=== PATIENT | male | born 1995 | race Caucasian/White ===

== ENCOUNTER 2017-02-01 21:00 | Inpatient (IN) | payer OTHER ==
[~2017-02-01] VITALS: Ht 167.6 cm; Wt 66.9 kg
[2017-02-01] MEDS ORDERED: NS 1,000 ML IV ONE (21:15)
[2017-02-01] MEDS ORDERED: ZZZQ25CA PO (21:18)
[2017-02-01 21:37] LABS: BASO % 0.4 % (0.0-1.0); EOS # 0.1 K/mm3 (0.0-0.50); LARGE UNSTAINED CELL # 0.2 K/mm3 (0.0-0.4); LARGE UNSTAINED CELL % 2.3 % (0.0-4.0); LYMPH # 1.8 K/mm3 (1.5-6.5); LYMPH % 25.1 % (24.0-44.0); MEAN CORPUSCULAR HEMOGLOBIN 31.1 pg (27.0-33.0); MEAN CORPUSCULAR HGB CONC 34.5 g/dl (32.0-36.5); MEAN CORPUSCULAR VOLUME 90.1 fl (80.0-96.0); MONO # 0.4 K/mm3 (0.0-0.8); MONO % 4.8 % (0.0-5.0); NEUTROPHILS # 4.8 K/mm3 (1.8-7.7); NEUTROPHILS % 66.4 % (36.0-66.0); PLATELET COUNT, AUTOMATED 253 k/mm3 (150-450); WHITE BLOOD COUNT 7.2 K/mm3 (4.0-10.0)
[2017-02-01] MEDS ORDERED: CHARCOAL ACTIVATED LIQUID 25 GM/120 ML BTL As Ordered ONE (21:46)
[2017-02-01 21:56] LABS: METHADONE URINE NEGATIVE (NEGATIVE)
[2017-02-01 21:56] LABS: ALBUMIN 4.5 GM/DL (3.2-5.2); ALKALINE PHOSPHATASE 58 U/L (45-117); ALT/SGPT 13 U/L (12-78); ANION GAP 12 MEQ/L (8-16); AST/SGOT 13 U/L (15-37); BILIRUBIN,DIRECT 0.1 MG/DL (0.0-0.2); BILIRUBIN,TOTAL 0.5 MG/DL (0.2-1.0); BLOOD UREA NITROGEN 14 MG/DL (7-18); CALCIUM LEVEL 8.6 MG/DL (8.5-10.1); CARBON DIOXIDE LEVEL 25 MEQ/L (21-32); CHLORIDE LEVEL 108 MEQ/L (98-107); CREATININE FOR GFR 1.12 MG/DL (0.70-1.30); GLOMERULAR FILTRATION RATE > 60.0 (>60); GLUCOSE, FASTING 106 MG/DL (70-105); POTASSIUM SERUM 3.8 MEQ/L (3.5-5.1); SODIUM LEVEL 145 MEQ/L (136-145); TOTAL PROTEIN 7.5 GM/DL (6.4-8.2)
[2017-02-01] MEDS ORDERED: CHARCOAL ACTIVATED LIQUID 25 GM/120 ML BTL PO ONE (22:00)
[2017-02-02] MEDS ORDERED: NS 1,000 ML IV ONE (02:00)
--- NOTE | 2017-02-02 09:59 | ECGEPIP ---
Stationary ECG Study 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
[2017-02-02 16:15] VITALS: BP 136/84
[2017-02-02] MEDS ORDERED: MAALOX 30 ML SUSP *UDC PO PRN (17:30)
[2017-02-02] MEDS ORDERED: MOM 30ML SUSPENSION UDC PO PRN (17:30)
[2017-02-02] MEDS ORDERED: ACETAMINOPHEN TAB 650MG DOSE (2X325MG) PO PRN (17:30)
[2017-02-03 06:00] VITALS: BP 114/75
--- NOTE | 2017-02-03 11:17 | HPEPDOC ---
Medical History and Physical Date of Admission Feb 02, 2017 at 14:39 History and Physical PCP: [facility] ATTENDING: Dr. Caesar Mathew HPI: 21yoM admitted to [facility] for other specified depressive disorder, being medically examined today. No acute medical complaints today. Multiple superficial self-inflicted lacerations are noted left forearm. Patient states these are from a couple of days ago. He also has some healing cuts on his left foot. Denies any fevers, chills, weakness, fatigue, JONES, CP, SOB, cough, palpitations, abdominal pain, N/V/D or changes in bowel or bladder habits. PMHx: ADHD Depression History of SI Self-mutilation Insomnia PSHX: Denies SOCHX: Resides in: [facility] dormitory, from [facility] Marital Status: Single Kids: None Employment: Full-time student Tobacco use: Denies ETOH: Weekends 6 drinks Illicit Drugs: Denies IV Drug Use: Denies Tattoos done unprofessionally: Denies FAMHX: Mother: Alive, depression Father: Alive, well Siblings: 2 half sisters, one half brother Alive, depression Children: None Unexpected deaths due to medical reasons: None. ROS: As noted in HPI, otherwise 11pt ROS of systems reviewed and unremarkable. PE: GEN: 21yoM, appears stated age. Well-nourished, well developed. No acute distress. Alert and oriented x 3. Pleasant, interactive. HEENT: Normocephalic, atraumatic. Pupils are equal, round, and reactive to light. Extraocular movements are intact. No nystagmus appreciated. Sclera are nonicteric. Conjunctiva without injection. Nose midline. Nasal turbinates without bogginess. EACs both patent BL. TMs both visualized and cash with good cone of light, no bulging or erythema. No facial asymmetry. Moist mucous membranes. Dentition fair. Pharynx pink and moist, no cobblestoning. Neck supple , trachea midline. No lymphadenopathy or thyromegaly appreciated. CHEST: Regular rate and rhythm, +S1, +S2 LUNGS: Clear to auscultation bilaterally. No wheezes, rales, or rhonchi. Breathing appears symmetric and easy. Patient is speaking in full sentences. No accessory muscle use. ABD: Round, soft, non-tender, non-distended. +Bowel sounds throughout. No rebound or guarding. No costovertebral angle tenderness. EXT: Pulses 2+ bilaterally dorsalis pedis and radial. No lower extremity edema appreciated. SKIN: [place], dry, warm. Capillary refill <2sec. No rashes. Healing superficial lacerations left forearm and left foot. No drainage, no erythema. NEURO: Alert and oriented x 3. Cranial nerves III-XII are intact. No focal deficits appreciated. EK02/01/17 SINUS TACHYCARDIA ABNORMAL RHYTHM ECG NO PRIOR FOR COMPARISON A&P: 21yoM admitted to [facility] for other specified depressive disorder 1. Psych. Plan per Psychiatry. EKG on file. 2. Superficial lacerations. Healing well. Dry dressing if needed. Monitor. 3. Follow up withPCP on discharge. 4. Safety aid Warner present throughout exam Vital Signs Vital Signs Label Value Date Time Patient Temperature 98.8 degrees F 02/03/17 0600 Pulse 73 02/03/17 0600 Respiratory Rate 16 bpm 02/03/17 0600 Blood Pressure Assessment 114/75 (88) 02/03/17 0600 Bedside Pulse Oximetry 98 % 02/02/17 1559 Item Value Date Time Oxygen Delivery Method Room Air 02/02/17 1559 Laboratory Data Labs 24H Item Value Date Time White Blood Count 7.2 K/mm3 02/01/172109 Red Blood Count 5.38 M/mm3 02/01/172109 Hemoglobin 16.7 g/dl 02/01/172109 Hematocrit 48.5 % 02/01/172109 Mean Corpuscular Volume 90.1 fl 02/01/172109 Mean Corpuscular Hemoglobin 31.1 pg 02/01/172109 Mean Corpuscular Hemoglobin Concent 34.5 g/dl 02/01/172109 Red Cell Distribution Width 12.0 % 02/01/172109 Platelet Count 253 k/mm3 02/01/172109 Sodium Level 145 MEQ/L 02/01/172109 Potassium Level 3.8 MEQ/L 02/01/172109 Chloride Level 108 MEQ/L H 02/01/172109 Carbon Dioxide Level 25 MEQ/L 02/01/172109 Anion Gap 12 MEQ/L 02/01/172109 Blood Urea Nitrogen 14 MG/DL 02/01/172109 Creatinine 1.12 MG/DL 02/01/172109 Glomerular Filtration Rate > 60.0 02/01/172109 Fasting Glucose 106 MG/DL H 02/01/172109 Calcium Level 8.6 MG/DL 02/01/172109 Total Bilirubin 0.5 MG/DL 02/01/172109 Direct Bilirubin 0.1 MG/DL 02/01/172109 Aspartate Amino Transf (AST/SGOT) 13 U/L L 02/01/172109 Alanine Aminotransferase (ALT/SGPT) 13 U/L 02/01/172109 Alkaline Phosphatase 58 U/L 02/01/172109 Total Creatine Kinase 124 U/L 02/01/172109 Total Protein 7.5 GM/DL 02/01/172109 Albumin 4.5 GM/DL 02/01/172109 Albumin/Globulin Ratio 1.50 02/01/172109 Thyroid Stimulating Hormone (TSH) 0.775 uIU/ML 02/01/172109 Salicylates Level < 1.7 MG/DL L 02/01/172109 Urine Opiates Screen NEGATIVE 02/01/172032 Urine Methadone Screen NEGATIVE 02/01/172032 Acetaminophen Level < 2.0 UG/ML L 02/01/172109 Acetaminophen Level < 2.0 UG/ML L 02/02/177 Urine Barbiturates Screen NEGATIVE 02/01/172032 Urine Phencyclidine Screen NEGATIVE 02/01/172032 Urine Amphetamines Screen NEGATIVE 02/01/172032 Urine Benzodiazepines Screen NEGATIVE 02/01/172032 Urine Cocaine Metabolite Screen NEGATIVE 02/01/172032 Urine Cannabinoids Screen NEGATIVE 02/01/172032 Ethyl Alcohol Level 0.170 % H 02/01/172109 Home Medications Scheduled PRN (Zzzquil) 25 Mg Cap 25 MG PO QHS PRN PRN SLEEP Allergies Coded Allergies: No Known Drug Allergy (Verified Allergy, Unknown, 02/01/17) Myriam Verdugo Feb 03, 2017 11:17
[2017-02-03 12:32] VITALS: BP 126/80
[2017-02-03 18:00] VITALS: BP 139/80
--- NOTE | 2017-02-03 20:33 | HPEPDOC ---
[facility] History & Physical History and Physical DATE OF ADMISSION: Feb 02, 2017 at 14:39 CHIEF COMPLAINT: "I attempted suicide with alcohol and pills." HISTORY OF THE PRESENT ILLNESS: Patient is a 21-year-old male who states this is his first inpatient hospitalization, indicates 2 nights ago he was "drinking with friends and got dunk and one of my friends didn't approve of my drinking which upset me so I went into my room and I hope someone would notice that I took pills to overdose. Patient states security was called and had to break down the bathroom door in order to facilitate patient's transport to the hospital for evaluation. Patient informs movie writer he overdosed on approximately 24 tabs of Benadryl (Zzzquil). With regard to the episode patient states, "I wanted to be a threat for them to know I was in pain. I was emotional, afraid of being abandoned." Patient adds, "my girlfriend recently left me in some of the people in my suite have been too busy and not talking to me." Patient indicates symptoms of depression began in 2015 when he started attending college at [employer], notes he has made friends at school but stresses he has "problems with abandonment," and has been under stress stemming from academic studies. Patient rates current anxiety level is 5/10, depression 3/10, denies current suicidal or homicidal ideation, denies audiovisual hallucinations, and denies urge to engage in self-injurious behavior. Patient has multiple superficial lacerations to left forearm, informs movie writer he has a history of cutting arm in high school "multiple times." Patient describes his history of self-injurious behavior as "it's a form of masochism and I enjoy it." Patient reports history of suicide attempt 1 in high school [address] of overdose, states he never told anyone and never received treatment. This is contrary to ER report which indicates patient stated he began experiencing symptoms of depression in 9th grade, also apparently informed ER staff that he has a history of 2 prior suicide attempts via OD, also told ER staff that he attempted to hang himself at age 19 but the noose broke and the attempt went unreported. The aforementioned suicide attempts conflict with information provided to movie writer today; patient informs movie writer he has history of one prior suicide attempt. Patient endorses history of discomfort in social settings, endorses history of panic symptoms, denies challenges with impulse control, compulsive behaviors, and indicates his mood is level. Patient denies history of aggression, and denies having access to weapons. Patient denies history of hypomania or leo symptoms, indicates his appetite is "decent," denies recent changes to weight, denies history of eating disorder and use of compensatory behaviors. Patient indicates he experiences challenges with sleep related to studying for school. Patient indicates he uses Mountain Dew to stay awake to study then uses Zzzquil 1-2 times per week after studying 2-induced sedation. Patient denies challenges with sleep when he is not under stress from school and has enough time to sleep , endorses periodic nightmares. PAST PSYCHIATRIC HISTORY: Prior Psychiatric Disorder: Patient states he was treated for ADHD when younger and took medications which were ineffective but caused weight loss. Patient denies history of other psychiatric challenges, indicates he attempted suicide in high school for which she received no treatment Outpatient Treatment: Outpatient therapy in 2007 stating, "not sure why went to therapy." Suicidal/Self injurious: Reports history of being beginning in high school, last cutting episode was just prior to current hospitalization Psychotropic Medication History: ADHD medications, unknown. ALLERGIES: Please see below. HOME MEDICATIONS: Per record as follows: See below PAST MEDICAL/SURGICAL HISTORY: Patient denies chronic medical issues, denies history of seizure and had injury. FAMILY PSYCHIATRIC HISTORY: Sister - suicide attempt, depression Biological mother - depression, suicidal ideation Paternal uncle - alcohol abuse, drug abuse, incarceration SOCIAL HISTORY: Patient states he was born in the [facility] area and then "jumped around" due to parents and then reestablishing new relationships. Patient indicates he lived with his grandmother in the [facility] for one year while his father was deployed, then resided with his father when his father returned from deployment. Patient's mother lives in the [facility], patient declined to discuss the nature of his relationship with his mother, noted he sees her on holidays. Patient denies history of abuse, trauma, or witnessing domestic violence in the home while growing up. Patient indicates he has 3/2 siblings and 2 stepsiblings. Patient reports his girlfriend recently broke up with him and declines to elaborate, states he is single, never , no children. Patient notes he has friends in the [place] area, indicates he gets along well with his suite mates at college, indicates he has limited support system and does not feel close to his family. 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 SUBSTANCE ABUSE HISTORY: Patient indicates he has been drinking alcohol over the past 2 months, notes he drinks every other weekend up to 6 shots per drinking episode, states he only drinks socially and at college. Patient denies history of other substance use or abuse. Patient states on the night of his attempted suicide he consumed 10 shots of alcohol. LEGAL HISTORY: Patient denies VITAL SIGNS: B/P 114/75, P 73, R 16, T 98.8. LABORATORY DATA: Labs on admission indicated elevated neutrophils, chloride, glucose, low AST. BAL on admission 0.170 EKG 02/01/17 sinus tachycardia abnormal rhythm ECG no prior for comparison MENTAL STATUS EXAMINATION: Patient is 21-year-old single male, who attends [employer], is engageable, calm and cooperative, makes poor eye contact, appears disheveled , is dressed in hospital clothing, ambulates with steady gait, is of thin build , appears stated age. Speech: Is of normal rate and rhythm, low volume, coherent, generally spontaneous. Language skills are intact. Thought processes: Clear, goal-directed. Thought content: Rational, logical. Abstract reasoning, and computation: Requires further evaluation. Description of associations: Intact. Description of abnormal or psychotic thoughts: denies hallucinations, delusions , preoccupation with violence, homicidal or suicidal ideation, and obsessions]. Judgment: Poor. Insight: Poor. Orientation to time, place and person. Recent and remote memory: Appears intact other than related to events just prior to suicide attempt Attention span and concentration: Appear adequate. Language: Normal. Fund of knowledge: Adequate. Mood: "Decent for now." Patient appears depressed, anxious, no mood lability noted at time of interaction Affect: Blunted. DIAGNOSES: Adjustment disorder with mixed anxiety and depressed mood, alcohol use disorder, rule out MDD, rule out sleep disorder ASSESSMENT: Patient is 21-year-old single male student who attends [employer] who was recently treated in [facility] after attempting to overdose on Benadryl while intoxicated on alcohol. Patient appears to be adjusting to unit, is visible, socializes selectively, is attending groups. Patient denies current suicidal or homicidal ideation and urged to engage in self-injurious behavior, and is able to verbalize how to access supportive services on the unit if needed. Medication options were reviewed with patient who is agreeable to trialing an antidepressant in effort to reduce symptoms of anxiety, depression, suicidal ideation, and urged to engage in self-injurious behavior. Patient indicates he has been sleeping well in the hospital, is aware he has trazodone available to him for sleep if needed. Will monitor patient's response to medication, monitor side effects, and evaluate patient's safety, resolution of suicidal ideation and self-injurious urges, and discharge readiness. Patient informs movie writer he is not sure what his discharge plan will be but hopes to return to [employer] to finish school. PROBLEM LIST: Suicide attempt Self-injurious behavior Depression Anxiety Substance abuse Poor impulse control Ineffective coping School related stress Family relationship tension Romantic/personal relationship tension Limited support INITIAL TREATMENT PLAN: 1. Patient was admitted on a 9.39 legal status. 2. Complete history was obtained. 3. With patients permission, family will be contacted and database will be expanded. 4. Patients medication regimen will be reviewed and changed accordingly. 5. Patient will be provided with protected environment. 6. Patient will be treated with individual, group, and milieu therapies. 7. Patient will receive supportive psych-education. 8. Discharge planning will commence immediately. 9. Outpatient follow-up treatment will be strongly recommended. 10. The initial treatment plan will focus initially on: * Depression. * Risk for suicide. * Substance abuse. ESTIMATED LENGTH OF STAY: 5-7 DAYS. TIME SPENT COUNSELING AND COORDINATING INITIAL CARE: 50 minutes. Medications Scheduled PRN (Zzzquil) 25 Mg Cap 25 MG PO QHS PRN PRN SLEEP (Reported) Allergies Coded Allergies: No Known Drug Allergy (Verified Allergy, Unknown, 02/01/17) Ramonita Venegas Feb 03, 2017 20:33
[2017-02-04 06:25] VITALS: BP 122/76
[2017-02-04] MEDS ORDERED: SERTRALINE HCL 25 MG TABLET PO SCH (09:00)
--- NOTE | 2017-02-04 11:50 | IPNPDOC ---
[facility] Progress Note Progress Note DATE OF SERVICE: 02/04/17 HISTORY: Patient is a 21-year-old male who states this is his first inpatient hospitalization, indicates 2 nights ago while intoxicated and overdosed on Benadryl (Zzzquil) as a result of experiencing symptoms of "abandonment," indicates episode required security to break down the bathroom door. Patient provides contradictory information regarding number of prior suicide attempts (1 -4), has history of self-injurious behavior and currently has multiple superficial wounds to forearm. Patient began antidepressant trial today, denies medication side effects, and is agreeable to continuing to take medication. Patient reports some improvement to symptoms of anxiety and depression, denies audiovisual hallucinations, denies suicidal and homicidal ideation, and denies urge to engage in self-injurious behavior. Patient further denies symptoms of isolation/abandonment and impulsivity. Patient has been visible on unit and indicates groups and peer support are helpful. Patient describes sleep as "good, " describes energy level as "normal," and indicates concentration focus and appetite are stable. Patient states he wants to return to [employer] dorm upon discharge from hospital to complete semester, makes no request for arrangements to enable him to complete homework or have computer access. Patient denies symptoms of physical pain and presents with no signs of acute distress at time of interaction. VITAL SIGNS: See below. NEW TEST RESULTS: No new results. Labs on admission indicated elevated neutrophils, chloride, glucose, low AST. Patient denies chronic medical issues, denies history of seizure and had injury. BAL on admission 0.170 EKG 02/01/17 sinus tachycardia abnormal rhythm ECG no prior for comparison CURRENT MEDICATIONS: See below. MENTAL STATUS EXAMINATION: Patient is 21-year-old single male, who attends [employer], is engageable, calm and cooperative, makes limited eye contact, appears disheveled, is dressed in hospital clothing, ambulates with steady gait, is of thin build, appears stated age. Speech: Is of normal rate and rhythm, low volume, coherent, generally spontaneous. Language skills are intact. Thought processes: Clear, goal-directed. Thought content: Rational, logical. Abstract reasoning, and computation: Requires further evaluation. Description of associations: Intact. Description of abnormal or psychotic thoughts: denies hallucinations, delusions , preoccupation with violence, homicidal or suicidal ideation, and obsessions]. Judgment: Poor. Insight: Poor. Orientation to time, place and person. Recent and remote memory: Appears intact other than related to events just prior to suicide attempt Attention span and concentration: Appear adequate. Language: Normal. Fund of knowledge: Adequate. Mood: "Ok." Patient appears depressed, anxious, no mood lability noted at time of interaction Affect: Blunted, brightens 1, congruent with mood DIAGNOSES: Adjustment disorder with mixed anxiety and depressed mood, alcohol use disorder, rule out MDD, rule out sleep disorder ASSESSMENT: Patient is 21-year-old single male student who attends [employer] who was recently treated in [facility] after attempting to overdose on Benadryl while intoxicated on alcohol. Patient appears to be adjusting to unit, is visible, socializes selectively, is attending groups. Patient denies current suicidal or homicidal ideation and urged to engage in self-injurious behavior, and is able to verbalize how to access supportive services on the unit if needed. Patient has begun taking Zoloft in effort to reduce symptoms of anxiety, depression, suicidal ideation, and urge to engage in self-injurious behavior, denies medication side effects. Patient indicates he has been sleeping well in the hospital, is aware he has trazodone available to him for sleep if needed. Will monitor patient's response to medication, monitor side effects, and evaluate patient's safety, resolution of suicidal ideation and self-injurious urges, and discharge readiness. Patient states he wants to discharge back to dorm room at [employer] to finish semester, is agreeable to participating in outpatient psychotherapy and medication management, has been encouraged to consider outpatient substance abuse treatment which she is declining at this time but agrees to consider. MANAGEMENT PLAN: Increase Zoloft 50 mg po q am, continue trazodone 50 mg po hs PRN Maintain safety precautions Patient to attend groups and participate in unit programming to develop coping strategies Engage patient in discharge planning process and arrange meeting with support system to ensure safe discharge planning when appropriate Patient to follow up with PCM upon discharge TIME SPENT: 35 minutes. Vital Signs Vital Signs Date Time Temp Pulse Resp B/P Pulse Ox O2 Delivery O2 Flow Rate FiO2 02/04/17 06:25 98.9 93 20 122/76 02/02/17 15:59 98 Room Air Current Medications Current Medications Acetaminophen (Tylenol Tab) 650 mg Q6HP PRN PO HEADACHE or DISCOMFORT Last administered on 02/03/17 06:38; Start 02/02/17 at 17:30; Stop 03/04/17 at 17:29 Al Hydrox/Mg Hydrox/Simethicone (Mylanta) 30 ml Q4HP PRN PO HEARTBURN/ INDIGESTION; Start 02/02/17 at 17:30; Stop 03/04/17 at 17:29 Home Med (Med Rec Complete!) ASDIRECTED XX ; Start 02/02/17 at 14:15; Stop at 14:16; Status DC Magnesium Hydroxide (Milk Of Magnesia) 30 ml DAILYPRN PRN PO CONSTIPATION; Start 02/02/17 at 17:30; Stop 03/04/17 at 17:29 Sertraline HCl (Zoloft) 25 mg QAM PO Last administered on 02/04/17 08:47; Start 02/04/17 at 09:00; Stop 03/06/17 at 08:59 Trazodone HCl (Desyrel) 50 mg QHSP PRN PO INSOMNIA; Start 02/02/17 at 17:30; Stop 03/04/17 at 17:29 Allergies Coded Allergies: No Known Drug Allergy (Verified Allergy, Unknown, 02/01/17) Ramonita Venegas Feb 04, 2017 11:50
[2017-02-04 12:00] VITALS: BP 143/92
[2017-02-04 18:00] VITALS: BP 138/94
[2017-02-05 06:25] VITALS: BP 142/94
[2017-02-05] MEDS: SERTRALINE HCL 50 MG TAB PO SCH (08:12)
[2017-02-05 11:39] VITALS: BP 127/65
[2017-02-05 18:00] VITALS: BP 152/85
--- NOTE | 2017-02-05 18:07 | IPNPDOC ---
[facility] Progress Note Progress Note DATE OF SERVICE: 02/05/17 HISTORY: Patient is a 21-year-old male who states this is his first inpatient hospitalization, indicates he attempted to overdose on Benadryl (Zzzquil) as a result of experiencing symptoms of "abandonment," adds episode required security to break down the bathroom door. Patient provides contradictory information regarding number of prior suicide attempts (1-4), has history of self-injurious behavior and currently has multiple superficial wounds to forearm. Patient began antidepressant trial, denies medication side effects and informs selling underwriter "I think it's helping I'm not as depressed or is easily triggered ," is agreeable to continuing to take medication. Patient reports continuing improvement to symptoms of anxiety and depression, denies audiovisual hallucinations, denies suicidal and homicidal ideation, and denies urge to engage in self-injurious behavior. Patient further denies symptoms of isolation/ abandonment and impulsivity. Patient has been visible on unit and indicates groups and peer support are helpful. Patient describes sleep as "good," reports improvement in energy level, and indicates concentration focus and appetite are stable. Patient states he wants to return to [employer] dorm upon discharge from hospital to complete semester. Patient denied need for selling underwriter to enter order permitting patient to use his school books on unit, also makes no request for computer access. Patient denies symptoms of physical pain and presents with no signs of acute distress at time of interaction. VITAL SIGNS: See below. NEW TEST RESULTS: No new results. Labs on admission indicated elevated neutrophils, chloride, glucose, low AST. Patient denies chronic medical issues, denies history of seizure and had injury. BAL on admission 0.170 EKG 02/01/17 sinus tachycardia abnormal rhythm ECG no prior for comparison CURRENT MEDICATIONS: See below. MENTAL STATUS EXAMINATION: Patient is 21-year-old single male, who attends [employer], is engageable, calm and cooperative, makes improved eye contact, appears disheveled, is dressed in hospital clothing, ambulates with steady gait, is of thin build, appears stated age. Speech: Is of normal rate and rhythm, low volume, coherent, generally spontaneous. Language skills are intact. Thought processes: Clear, goal-directed. Thought content: Rational, logical. Abstract reasoning, and computation: Requires further evaluation. Description of associations: Intact. Description of abnormal or psychotic thoughts: denies hallucinations, delusions , preoccupation with violence, homicidal or suicidal ideation, and obsessions]. Judgment: Poor. Insight: Poor. Orientation to time, place and person. Recent and remote memory: Appears intact other than related to events just prior to suicide attempt Attention span and concentration: Appear adequate. Language: Normal. Fund of knowledge: Adequate. 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 Patient appears to be adjusting to unit, is visible, socializes selectively, is attending groups. Patient denies current suicidal or homicidal ideation, denies urge to engage in self-injurious behavior, and is able to verbalize how to access supportive services on the unit if needed. Patient has begun taking Zoloft in effort to reduce symptoms of anxiety, depression, suicidal ideation, and urge to engage in self-injurious behavior, denies medication side effects and reports some symptom improvement. Patient states he continues to sleep well in the hospital, is aware he has trazodone available to him for sleep if needed. Will monitor patient's response to medication, monitor side effects, and evaluate patient's safety, resolution of suicidal ideation and self-injurious urges, and discharge readiness. Patient states he wants to discharge back to dorm room at [employer] to finish semester, is agreeable to participating in outpatient psychotherapy and medication management , has been strongly encouraged to consider outpatient substance abuse treatment which he is declining at this time but agrees to consider. MANAGEMENT PLAN: Continue Zoloft 50 mg po q am, continue trazodone 50 mg po hs PRN Maintain safety precautions Patient to attend groups and participate in unit programming to develop coping strategies Engage patient in discharge planning process and arrange meeting with support system to ensure safe discharge planning when appropriate Patient to follow up with PCM upon discharge TIME SPENT: 35 minutes. Vital Signs Vital Signs Date Time Temp Pulse Resp B/P Pulse Ox O2 Delivery O2 Flow Rate FiO2 02/05/17 11:39 100.1 86 16 127/65 02/02/17 15:59 98 Room Air Current Medications Current Medications Acetaminophen (Tylenol Tab) 650 mg Q6HP PRN PO HEADACHE or DISCOMFORT Last administered on 02/03/17 06:38; Start 02/02/17 at 17:30; Stop 03/04/17 at 17:29 Al Hydrox/Mg Hydrox/Simethicone (Mylanta) 30 ml Q4HP PRN PO HEARTBURN/ INDIGESTION; Start 02/02/17 at 17:30; Stop 03/04/17 at 17:29 Home Med (Med Rec Complete!) ASDIRECTED XX ; Start 02/02/17 at 14:15; Stop at 14:16; Status DC Magnesium Hydroxide (Milk Of Magnesia) 30 ml DAILYPRN PRN PO CONSTIPATION; Start 02/02/17 at 17:30; Stop 03/04/17 at 17:29 Sertraline HCl (Zoloft) 25 mg QAM PO Last administered on 02/04/17 08:47; Start 02/04/17 at 09:00; Stop 02/04/17 at 11:51; Status DC Sertraline HCl (Zoloft) 50 mg QAM PO Last administered on 02/05/17 08:12; Start 02/05/17 at 09:00; Stop 03/07/17 at 08:59 Trazodone HCl (Desyrel) 50 mg QHSP PRN PO INSOMNIA; Start 02/02/17 at 17:30; Stop 03/04/17 at 17:29 Allergies Coded Allergies: No Known Drug Allergy (Verified Allergy, Unknown, 02/01/17) Ramonita Venegas Feb 05, 2017 18:07
[2017-02-05 21:30] VITALS: BP 142/82
[2017-02-05] MEDS: traZODone 50 MG TAB PO PRN (22:08)
[2017-02-06 06:41] VITALS: BP 133/66
[2017-02-06] MEDS: SERTRALINE HCL 50 MG TAB PO SCH (09:07)
[2017-02-06 11:20] VITALS: BP 139/92
[2017-02-06 18:00] VITALS: BP 127/68
[2017-02-06 21:00] VITALS: BP 124/72
[2017-02-07 06:46] VITALS: BP 135/86
[2017-02-07] MEDS: SERTRALINE HCL 50 MG TAB PO SCH (09:07)
[2017-02-07 10:04] VITALS: BP 150/93
[2017-02-08 06:36] VITALS: BP 129/73
[2017-02-08] MEDS: SERTRALINE HCL 50 MG TAB PO SCH (08:49)
[2017-02-08 11:57] VITALS: BP 140/90
--- NOTE | 2017-02-08 12:46 | IPNPDOC ---
[facility] Progress Note Progress Note DATE OF SERVICE: 02/08/17 HISTORY: Patient is a 21-year-old male who states this is his first inpatient hospitalization, indicates he attempted to overdose on Benadryl (Zzzquil) as a result of experiencing symptoms of "abandonment," adds episode required security to break down the bathroom door. Patient provided contradictory information regarding number of prior suicide attempts (1-4), has history of self-injurious behavior and currently has multiple superficial wounds to forearm which appear to be healing well. Patient has been taking Zoloft with good effect, and denies medication side effects. Patient indicates medication is "very helpful, my mood is better, and I feel ready to go back to school." Patient denies symptoms of anxiety and depression, denies suicidal and homicidal ideation, denies audiovisual hallucinations, and denies urge to engage in self-injurious behavior. Patient reports improvement to sleep and denies nightmares, reports improvement in energy level, denies challenges with concentration and focus, and indicates his appetite has improved. Patient is noticeably more visible on unit, is participating well in groups, and is engaging appropriately with staff and peers. Patient is able to verbalize concrete strategies for avoiding suicidal gestures and self-injurious behavior, is also able to verbalize some insight as to feelings behind self-injurious behavior and symptom exacerbation with the use of alcohol. Patient adds he feels he is communicating better with his suite mates, feels they're more supportive, and states he feels more comfortable with seeking out support from friends, family, and school counseling services if needed. Patient reiterates he wants to return to [facility] dorm upon discharge from hospital to complete semester. Patient again denied need for television script writer to enter order permitting patient to use his school books on unit, also denies need for computer access. Patient denies symptoms of physical pain and presents with no signs of acute distress at time of interaction. VITAL SIGNS: See below. NEW TEST RESULTS: No new results. Labs on admission indicated elevated neutrophils, chloride, glucose, low AST. Patient denies chronic medical issues, denies history of seizure and had injury. BAL on admission 0.170 EKG 02/01/17 sinus tachycardia abnormal rhythm ECG no prior for comparison CURRENT MEDICATIONS: See below. MENTAL STATUS EXAMINATION: Patient is 21-year-old single male, who attends [employer], is engageable, calm and cooperative, makes improved eye contact, personal hygiene appears improved, is dressed on clothing, ambulates with steady gait, is of thin build, appears stated age. Speech: Is of normal rate and rhythm, low volume, coherent, generally spontaneous. Language skills are intact. Thought processes: Clear, goal-directed. Thought content: Rational, logical. Abstract reasoning, and computation: Requires further evaluation. Description of associations: Intact. Description of abnormal or psychotic thoughts: denies hallucinations, delusions , preoccupation with violence, homicidal or suicidal ideation, and obsessions]. Judgment: Limited, some improvement Insight: Limited, some improvement Orientation to time, place and person. Recent and remote memory: Appears intact other than related to events just prior to suicide attempt Attention span and concentration: Appear adequate. Language: Normal. Fund of knowledge: Adequate. 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 Patient appears to be adjusting well to unit, is visible , socializes selectively but appropriately, is attending groups. Patient denies current suicidal or homicidal ideation, denies urge to engage in self-injurious behavior, and is able to verbalize how to access supportive services on the unit if needed. Patient continues to take antidepressant, denies symptoms of irritability, impulsivity, SIB urge, further denies medication side effects. Patient states he continues to sleep well in the hospital, is aware he has trazodone available to him for sleep if needed. Patient is requesting discharge , will ask sales planning coordinator to begin making arrangements for patient to return to [facility] with supportive services. Will continue to monitor patient's response to medication, monitor side effects, and evaluate patient's safety, resolution of suicidal ideation and self-injurious urges. Patient is tentatively scheduled for discharge tomorrow, is future oriented and states he wants to discharge back to dorm room at [employer] to finish semester, is agreeable to participating in outpatient psychotherapy and medication management, has been strongly encouraged to consider outpatient substance abuse treatment which he is declining at this time but agrees to consider. MANAGEMENT PLAN: Continue Zoloft 50 mg po q am, continue trazodone 50 mg po hs PRN Maintain safety precautions Patient to attend groups and participate in unit programming to develop coping strategies Engage patient in discharge planning process and arrange meeting with support system to ensure safe discharge planning when appropriate Patient to follow up with PCM upon discharge TIME SPENT: 35 minutes. Vital Signs Vital Signs Date Time Temp Pulse Resp B/P Pulse Ox O2 Delivery O2 Flow Rate FiO2 02/08/17 11:57 100.8 88 16 140/90 02/02/17 15:59 98 Room Air Current Medications Current Medications Acetaminophen (Tylenol Tab) 650 mg Q6HP PRN PO HEADACHE or DISCOMFORT Last administered on 02/03/17 06:38; Start 02/02/17 at 17:30; Stop 03/04/17 at 17:29 Al Hydrox/Mg Hydrox/Simethicone (Mylanta) 30 ml Q4HP PRN PO HEARTBURN/ INDIGESTION; Start 02/02/17 at 17:30; Stop 03/04/17 at 17:29 Home Med (Med Rec Complete!) ASDIRECTED XX ; Start 02/02/17 at 14:15; Stop at 14:16; Status DC Magnesium Hydroxide (Milk Of Magnesia) 30 ml DAILYPRN PRN PO CONSTIPATION; Start 02/02/17 at 17:30; Stop 03/04/17 at 17:29 Sertraline HCl (Zoloft) 25 mg QAM PO Last administered on 02/04/17 08:47; Start 02/04/17 at 09:00; Stop 02/04/17 at 11:51; Status DC Sertraline HCl (Zoloft) 50 mg QAM PO Last administered on 02/08/17 08:49; Start 02/05/17 at 09:00; Stop 03/07/17 at 08:59 Trazodone HCl (Desyrel) 50 mg QHSP PRN PO INSOMNIA Last administered on 22:08; Start 02/02/17 at 17:30; Stop 03/04/17 at 17:29 Allergies Coded Allergies: No Known Drug Allergy (Verified Allergy, Unknown, 02/01/17) Ramonita Venegas 20, 2017 12:46
[2017-02-08 18:00] VITALS: BP 138/80
--- NOTE | 2017-02-08 21:16 | IPN ---
DATE: 02/06/2017 Mr. Schneider has a history of self injurious behavior of cutting, which he states he now does for pleasure. He states he has had some episodes of depression beginning when he was in high school and his friends graduated; at this time, this admission, a recent breakup with a girl name Shelia. 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 Precipitating behavior was large intake of alcohol with friends throughout the last weekend including rum, whiskey, Everclear and vodka. He states his present friend, Sherie, did not improve of his behavior and he became suicidal. He is presently started on Zoloft 50 mg. Mood is euthymic. Eye contact is good. Appearance is appropriate. Speech is low in volume. Affect is neutral. He denies hallucinations and delusions. No disturbances of memory, immediate or remote. He is fully oriented. He has no loose associations. He is not presently suicidal or homicidal "as long as he is in here." His judgment is poor. No change in medication. He is presently on Sertraline 50 mg every a.m. Adjustment disorder with mixed anxiety and depression. Alcohol use disorder. MTDD
[2017-02-08] MEDS: traZODone 50 MG TAB PO PRN (21:59)
[2017-02-09 06:33] VITALS: BP 133/75
[2017-02-09] MEDS: SERTRALINE HCL 50 MG TAB PO SCH (08:46)
[2017-02-09] MEDS ORDERED: SERT50TA PO (09:47)
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
== END 2017-02-09 10:45 | disposition home or self-care (01) | DRG 882 ==
LOC: EDBD 21:00 → M ED 02-02 01:25 → M ED INP 02-02 14:39 → M PSY 02-02 16:15
PROVIDERS: ADMIT Psychiatry & Neurology Psychiatry; ATTEND Psychiatry & Neurology Child & Adolescent Psychiatry
DX: F43.23 Adjustment disorder with mixed anxiety and depressed mood (principal); F10.10 Alcohol abuse, uncomplicated; F32.9 Major depressive disorder, single episode, unspecified; Z63.0 Problems in relationship with spouse or partner; Z63.8 Other specified problems related to primary support group; T45.0X2A Poisoning by antiallergic and antiemetic drugs, intentional self-harm, initial encounter; Y92.162 Bathroom in school dormitory as the place of occurrence of the external cause

== ENCOUNTER 2017-03-25 16:03 | Emergency (ER) | payer OTHER ==
[~2017-03-25] VITALS: Ht 165.1 cm; Wt 65.8 kg
[~2017-03-25 16:03] MED LIST: SERT50TA PO; ZZZQ25CA PO
[2017-03-25] MEDS ORDERED: SERT-138 PO (16:19)
[2017-03-25 17:35] LABS: MEAN CORPUSCULAR HEMOGLOBIN 30.8 pg (27.0-33.0); MEAN CORPUSCULAR VOLUME 93.4 fl (80.0-96.0); RED CELL DISTRIBUTION WIDTH 12.5 % (11.5-14.5); WHITE BLOOD COUNT 6.5 K/mm3 (4.0-10.0)
[2017-03-25 18:16] LABS: METHADONE URINE NEGATIVE (NEGATIVE)
[2017-03-25 18:21] LABS: ALBUMIN 4.3 GM/DL (3.2-5.2); ALBUMIN/GLOBULIN RATIO 1.34 (1.00-1.93); ALKALINE PHOSPHATASE 59 U/L (45-117); ALT/SGPT 18 U/L (12-78); ANION GAP 9 MEQ/L (8-16); AST/SGOT 13 U/L (15-37); BILIRUBIN,DIRECT 0.2 MG/DL (0.0-0.2); BILIRUBIN,TOTAL 0.7 MG/DL (0.2-1.0); BLOOD UREA NITROGEN 13 MG/DL (7-18); CALCIUM LEVEL 8.5 MG/DL (8.5-10.1); CARBON DIOXIDE LEVEL 30 MEQ/L (21-32); CHLORIDE LEVEL 103 MEQ/L (98-107); CREATININE FOR GFR 1.04 MG/DL (0.70-1.30); GLOMERULAR FILTRATION RATE > 60.0 (>60); GLUCOSE, FASTING 87 MG/DL (70-105); POTASSIUM SERUM 4.2 MEQ/L (3.5-5.1); SODIUM LEVEL 142 MEQ/L (136-145); TOTAL PROTEIN 7.5 GM/DL (6.4-8.2)
[2017-03-25 20:53] VITALS: BP 149/77
== END 2017-03-25 20:55 | disposition home or self-care (01) ==
LOC: M ED 17:34
DX: F32.9 Major depressive disorder, single episode, unspecified (principal); S51.802A Unspecified open wound of left forearm, initial encounter; X78.9XXA Intentional self-harm by unspecified sharp object, initial encounter; Y92.89 Other specified places as the place of occurrence of the external cause; Y93.89 Activity, other specified
CPT/HCPCS: 36415; 80048; 80076; 80306; 84443; 85027; 99284; G0480